=== PATIENT | male | born 1970 | race Caucasian/White ===

== ENCOUNTER → 2016-12-02 | Outpatient (CLI) | payer OTHER ==
[~2016-12-02] MED LIST: ASPIR 8181 MG PO; BRILINTA90 MG PO; CATAPRES 0.1MG0.1 MG PO; KLONOPIN TAB 00.5 MG PO; LIPITOR TAB 2020 MG PO; LISINOPRIL2.5 MG PO; LISINOPRIL20 MG PO; LORTAB 5-325 M1 EACH PO; NITROSTAT 0.40.4 MG SL; ZESTRIL/PRINIVI10 MG PO
== END ==
LOC: HEART 5 07:45
DX: R07.9 Chest pain, unspecified (principal)
CPT/HCPCS: 78452; A9502; J2785

== ENCOUNTER → 2016-12-03 | Outpatient (CLI) | payer OTHER | LOC: ECHO 12:00 | DX: R07.9 Chest pain, unspecified (principal) | CPT/HCPCS: ECHO; 93306 ==